=== PATIENT | male | born 1980 | race Caucasian/White ===

== ENCOUNTER 2022-12-17 06:45 | Day surgery (SDC) | payer SELFPAY, OTHER ==
--- NOTE | 2022-12-17 | GASB_PTH ---
PATIENT: SARATH PATTERSON LOC: EN U#:[id number] AGE/SX: 42/M ROOM: RE12/17/[address]: Dr. Endy Fischer DO : 1980 BED: DIS: 12/17/2022 SPEC #: [id number] RECD: 12/17/22 12:54 STATUS: CORIE SALCIDO #: [id number] AMINA: 12/17/22 00:[address]: Endy Fischer DEPT: SURGICAL PATHOLOGY RECD BY: Cristian Garcia ENTERED: 12/17/22 12:55 SP TYPE: Gastric Bx OTHR DR: Dr. Robin Rodriguez MD Tissues: A - Duodenum, NOS B - Gastric mucous membrane C - Esophageal mucous membrane D - Cecum, NOS E - Ileum, NOS F - COLON BIOPSY Procedures: Special Stain Group II Surgery Specimen Level IV Alcian Blue/PAS (control) HEADER OPERATION: Colonoscopy, EGD (MAC), biopsy, hot snare, polypectomy PRE-OP DIAGNOSIS: Borborygmi, excessive gas TISSUE SUBMITTED: A - Duodenum biopsy, B - Gastric antrum biopsy for H. pylori and path, C - Distal esophagus biopsy, D - Ileocecal valve biopsy, E - Terminal ileum biopsy, F - Hepatic flexure polyp MICROSCOPIC DIAGNOSIS A. 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 B. Gastric antrum, biopsy: Mild chronic gastritis. See comment. C. Distal esophagus, biopsy: Chronic inflammation. No evidence of goblet cell metaplasia. D. Ileocecal valve, biopsy: No pathologic change. E. Terminal ileum, biopsy: No pathologic change. F. Colonic polyp at hepatic flexure, biopsy: Tubular adenoma. AM:stacie 12/18/2022 COMMENT B. The results of immunohistochemistry for Helicobacter pylori will be reported separately ([id number]). C. Alcian blue/PAS stain with matched control supports the above diagnosis. F. Neither hyperplastic nor adenomatous change is identified. Clinical correlation is suggested. MICROSCOPIC DESCRIPTION Slides are reviewed. GROSS DESCRIPTION A - Received in fixative is one container labeled with the patient's name and designated duodenum biopsy. The specimen consists of multiple irregular fragments of light weaver soft tissue that in aggregate measure 1.0 x 0.3 x 0.1 cm. The specimen is totally submitted in one cassette. B - Received in fixative is one container labeled with the patient's name and designated gastric antrum. The specimen consists of two irregular fragments of light weaver soft tissue that in aggregate measure 0.5 x 0.5 x 0.1 cm. The specimen is totally submitted in one cassette. C - Received in fixative is one container labeled with the patient's name and designated distal esophagus biopsy. The specimen consists of one irregular fragment of light weaver soft tissue that measures 0.3 x 0.3 x 0.1 cm. The specimen is totally submitted in one cassette. D - Received in fixative is one container labeled with the patient's name and designated ileocecal valve biopsy. The specimen consists of one irregular fragment of light weaver soft tissue that measures 0.3 x 0.3 x 0.1 cm. The specimen is totally submitted in one cassette. E - Received in fixative is one container labeled with the patient's name and designated terminal ileum biopsy. The specimen consists of two irregular fragments of light weaver soft tissue that in aggregate measure 0.5 x 0.5 x 0.1 cm. The specimen is totally submitted in one cassette. F - Received in fixative is one container labeled with the patient's name and designated hepatic flexure polyp. The specimen consists of one irregular fragment of light weaver soft tissue that measures 0.3 x 0.3 x 0.1 cm. The specimen is totally submitted in one cassette. Multiple fragments of fecal material are also noted. / SUSI:stacie 12/17/2022 TC:3 CPT: 90155 x6, 33472
[2022-12-17] MEDS: Lactated Ringers 1,000 ML 15 ML IV (07:16)
[2022-12-17 07:17] VITALS: BP 124/75; PULSE 70; RESP 18; TEMP 36.7; O2SAT 100; BMI 29.5
--- NOTE | 2022-12-17 07:33 | PCM.HP.BLA ---
History and Physical Date of Admission: 12/17/22 42 M who presents to the office today to establish with GI for increased burping and gurgling.? He reports GI changes starting in spring 2021.? Increased burping in morning, as well as some burping in day too, more than usual, increased flatus.? He tried eliminating dairy for 4 weeks but that did not resolve the symptoms.? Also no change in symptoms with dicyclomine or with Beano.? Gurgling sounds can be after eating but they do not have to be.? He denies bloating.? He denies abdominal pain.? He reports a past hx of acid reflux but not having any heartburn or acid reflux currently. No nausea or vomiting. No dysphagia. No early satiety. Normal appetite.? His weight is stable.? He has BM 2x per day, no diarrhea or constipation, no melena or hematochezia. ROS Const Constitutional: No fatigue ENT ENT: No difficulty swallowing Gastro GI: Positive for heartburn and excessive flatus; No abdominal pain, belching, bloating, change in bowel habits, change in stool character, coffee ground emesis, constipation, cramping, diarrhea, difficulty swallowing, feeling full early, incontinent of stools, Vomiting blood/hematemesis, Blood in stool, loose stools, Black,tarry stools, nausea/dyspepsia, pain with swallowing, vomiting or other Musc Musculoskeletal: No joint pain Skin Skin: No yellowing of the eye or itchy eyes Psych Psychiatric: No anxiety and No depression Endo Endocrine: No fatigue Aller/Imm Allergy/Immunologic: No itchy eyes Guille/Lymp Hematologic/Lymphatic: No easy bleeding or easy bruising Exam Const General: cooperative, healthy appearing and comfortable Nutritional Appearance: average body habitus Orientation: alert, awake and oriented x3 HENMT Head: normal to inspection Eyes Sclera: sclerae normal Resp Effort & Inspection: normal respiratory effort GI Inspection: normal to inspection Palpation: soft, no hepatosplenomegaly, no masses and nontender General: bladder normal to palpation Skin General: no rashes or lesions noted Neuro Speech: speech normal Gait: normal gait Quality Reporting Tobacco Screening ([facility] 138) Smoking Status: Never smoker Assessment and Plan Assessment and Plan (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 We will try a course of doxycycline for possible SIBO, we can get an update in a couple of weeks via telephone.? They are possibly interested in endoscopy for further evaluation. (2) Excessive gas: ?Status:?Chronic ?Plan: see above ? ? ? Medications: New doxycycline hyclate 100 mg? PO BID 20 caps 0RF ? ? I have examined the patient and the H&P has been reviewed. There are no clinical changes since date of exam.
--- NOTE | 2022-12-17 08:00 | IMM_PTH ---
PATIENT: SARATH PATTERSON LOC: [facility] U#:[id number] AGE/SX: 42/M ROOM: RE12/17/[address]: Dr. Endy Fischer DO : 1980 BED: DIS: 12/17/2022 SPEC #: [id number] RECD: 12/17/22 13:37 STATUS: CORIE LOLY #: [id number] AMINA: 12/17/22 08:[address]: Endy Fischer DEPT: IMMUNOHISTOCHEMISTRY RECD BY: Anna Shah ENTERED: 12/17/22 13:38 SP TYPE: IMMUNO OTHR DR: Dr. Robin Rodriguez MD Tissues: B - Stomach, NOS Procedures: H Pylori (initial) PHYSICIAN & INSTITUTION [place] [address] SPECIMEN INFORMATION: Tissue Source: B ? Gastric antrum Clinical Info: bee Soler Specimen Number: [id number] CPT code: 51904 METHODOLOGY: Deparaffinized sections of prefer/formalin-fixed tissue or PAP/DQ stained slides are incubated with monoclonal/polyclonal antibodies/oligonucleotide probes. Localization is made via biotin free immunoperoxidase method. Appropriate controls are performed and reacted as expected. Results on target cell population are indicated in the following table: RESULTS: ANTIBODY / CLONE RESULT Block B H Pylori (polyclonal) negative These tests were developed and their performance characteristics determined by [facility]. They may not have been cleared or approved by the U.S. Food and Drug Administration. The FDA has determined that such clearance or approval is not necessary. The above immunohistochemical/dualISH markers are ordered and reviewed by the Pathologist. INTERPRETATION: B. Gastric antrum, biopsy: Negative for Helicobacter pylori organisms. AM:stacie 12/19/2022
[2022-12-17 08:36] VITALS: BP 124/75; BP 126/83; PULSE 61; RESP 16; TEMP 36.2; O2SAT 98
--- NOTE | 2022-12-17 08:37 | OP.EGD_ITS ---
Patient Name: Tino Tucker Procedure Date: 12/17/2022 8:03 AM Date of : 1980 Age: 42 Procedure: Upper GI endoscopy Indications: Functional Dyspepsia, Indigestion Providers: Endy Fischer DO Referring MD: Endy Fischer DO Medicines: Monitored Anesthesia Care Patient Profile: This is a 42 year old male. Refer to note in patient chart for documentation of history and physical. Patient has symptoms of chronic dyspepsia and chronic nausea. Complications: No immediate complications. Procedure: Pre-Anesthesia Assessment: - Prior to the procedure, a History and Physical was performed, and patient medications and allergies were reviewed. The patient is competent. The risks and benefits of the procedure and the sedation options and risks were discussed with the patient. All questions were answered and informed consent was obtained. Patient identification and proposed procedure were verified by the physician in the pre-procedure area. Mental Status Examination: alert and oriented. Airway Examination: normal oropharyngeal airway and neck mobility. Respiratory Examination: clear to auscultation. CV Examination: normal. Prophylactic Antibiotics: The patient does not require prophylactic antibiotics. Prior Anticoagulants: The patient has taken no previous anticoagulant or antiplatelet agents. ASA Grade Assessment: II - A patient with mild systemic disease. After reviewing the risks and benefits, the patient was deemed in satisfactory condition to undergo the procedure. The anesthesia plan was to use moderate sedation / analgesia (conscious sedation). Immediately prior to administration of medications, the patient was re-assessed for adequacy to receive sedatives. The heart rate, respiratory rate, oxygen saturations, blood pressure, adequacy of pulmonary ventilation, and response to care were monitored throughout the procedure. The physical status of the patient was re-assessed after the procedure. After obtaining informed consent, the endoscope was passed under direct vision. Throughout the procedure, the patient's blood pressure, pulse, and oxygen saturations were monitored continuously. The pediatric colonoscope was introduced through the mouth, and advanced to the second part of duodenum. The upper GI endoscopy was accomplished without difficulty. The patient tolerated the procedure well. Scope In: 8:10:37 AM Scope Out: 8:14:34 AM Total Procedure Duration Time 0 hours 3 minutes 57 seconds Findings: Non-severe esophagitis with no bleeding was found 39 to 40 cm from the incisors. Biopsies were taken with a cold forceps for histology. Verification of patient identification for the specimen was done. Estimated blood loss was minimal. A small hiatal hernia was present. No gross lesions were noted in the entire examined stomach. Patchy mildly erythematous mucosa without bleeding was found in the gastric body. Patchy mildly erythematous mucosa without active bleeding and with no stigmata of bleeding was found in the duodenal bulb. Biopsies were taken with a cold forceps for histology. Verification of patient identification for the specimen was done. Estimated blood loss was minimal. Impression: - Non-severe reflux esophagitis. Biopsied. - Small hiatal hernia. - No gross lesions in the stomach. - Erythematous mucosa in the gastric body. - Erythematous duodenopathy. Biopsied. Recommendation: - Discharge patient to home. - Resume previous diet. - Continue present medications. - Await pathology results. Procedure Code(s): --- Professional --- 92417, Esophagogastroduodenoscopy, flexible, transoral; with biopsy, single or multiple CPT copyright 2017 [employer]. All rights reserved. The codes documented in this report are preliminary and upon fleet salesperson review may be revised to meet current compliance requirements. Endy Fischer DO 12/17/2022 8:37:25 AM This report has been signed electronically. Number of Addenda: 0 Note Initiated On: 12/17/2022 8:03 AM
--- NOTE | 2022-12-17 08:37 | OP.CCLET_ITS ---
12/17/2022 Robin Rodriguez Md Re : Upper GI endoscopy procedure for Tino Tucker Dear Jennifer This procedure was performed on Saturday, December 17, 2022. My impressions and recommendations are as follows: Impressions : - Non-severe reflux esophagitis. Biopsied. - Small hiatal hernia. - No gross lesions in the stomach. - Erythematous mucosa in the gastric body. - Erythematous duodenopathy. Biopsied. Recommendations : - Discharge patient to home. - Resume previous diet. - Continue present medications. - Await pathology results. My findings are described in the full procedure note, which is enclosed. If I can be of further assistance, please feel free to contact me at . Sincerely, Endy Fischer, 12/17/2022 8:37:25 AM This report has been signed electronically.
[2022-12-17 08:41] VITALS: BP 107/69; BP 124/75; PULSE 60; RESP 16; O2SAT 98
--- NOTE | 2022-12-17 08:43 | OP.CCLET_ITS ---
12/17/2022 Robin Rodriguez Md Re : Colonoscopy procedure for Tino Tucker Dear Jennifer This procedure was performed on Saturday, December 17, 2022. My impressions and recommendations are as follows: Impressions : - One 5 mm polyp at the hepatic flexure, removed with a hot snare. Resected and retrieved. - Segmental mild inflammation was found at the ileocecal valve secondary to colitis. Biopsied. - Congested mucosa in the terminal ileum. Biopsied. Recommendations : - Discharge patient to home. - Resume previous diet. - Continue present medications. - Await pathology results. - Repeat colonoscopy in 5 years for surveillance. My findings are described in the full procedure note, which is enclosed. If I can be of further assistance, please feel free to contact me at . Sincerely, Endy Fischer, 12/17/2022 8:42:50 AM This report has been signed electronically.
--- NOTE | 2022-12-17 08:43 | OP.COLON_ITS ---
Patient Name: Tino Tucker Procedure Date: 12/17/2022 8:14 AM Date of : 1980 Age: 42 Procedure: Colonoscopy Indications: Epigastric abdominal pain, Generalized abdominal pain, Obstipation Providers: Endy Fischer DO Referring MD: Endy Fischer DO Medicines: Monitored Anesthesia Care Patient Profile: This is a 42 year old male. Refer to note in patient chart for documentation of history and physical. Patient has symptoms of chronic dyspepsia and chronic nausea. Last Colonoscopy: none. The patient's first colonoscopy is today. Complications: No immediate complications. Procedure: Pre-Anesthesia Assessment: - Prior to the procedure, a History and Physical was performed, and patient medications and allergies were reviewed. The patient is competent. The risks and benefits of the procedure and the sedation options and risks were discussed with the patient. All questions were answered and informed consent was obtained. Patient identification and proposed procedure were verified by the physician in the pre-procedure area. Mental Status Examination: alert and oriented. Airway Examination: normal oropharyngeal airway and neck mobility. Respiratory Examination: clear to auscultation. CV Examination: normal. Prophylactic Antibiotics: The patient does not require prophylactic antibiotics. Prior Anticoagulants: The patient has taken no previous anticoagulant or antiplatelet agents. ASA Grade Assessment: II - A patient with mild systemic disease. After reviewing the risks and benefits, the patient was deemed in satisfactory condition to undergo the procedure. The anesthesia plan was to use moderate sedation / analgesia (conscious sedation). Immediately prior to administration of medications, the patient was re-assessed for adequacy to receive sedatives. The heart rate, respiratory rate, oxygen saturations, blood pressure, adequacy of pulmonary ventilation, and response to care were monitored throughout the procedure. The physical status of the patient was re-assessed after the procedure. After I obtained informed consent, the scope was passed under direct vision. Throughout the procedure, the patient's blood pressure, pulse, and oxygen saturations were monitored continuously. The pediatric colonoscope was introduced through the anus and advanced to the terminal ileum. The colonoscopy was performed without difficulty. The patient tolerated the procedure well. The quality of the bowel preparation was adequate. Scope In: 8:17:26 AM Scope Withdrawal Time 0 hours 9 minutes 51 seconds Scope Out: 8:31:28 AM Total Procedure Duration Time 0 hours 14 minutes 2 seconds Findings: The perianal and digital rectal examinations were normal. A 5 mm polyp was found in the hepatic flexure. The polyp was sessile. The polyp was removed with a hot snare. Resection and retrieval were complete. Verification of patient identification for the specimen was done. Estimated blood loss was minimal. Segmental mild inflammation characterized by erosions and erythema was found at the ileocecal valve. Biopsies were taken with a cold forceps for histology. Verification of patient identification for the specimen was done. Estimated blood loss was minimal. A localized area of the terminal ileum was congested. Biopsies were taken with a cold forceps for histology. Verification of patient identification for the specimen was done. Estimated blood loss was minimal. Impression: - One 5 mm polyp at the hepatic flexure, removed with a hot snare. Resected and retrieved. - Segmental mild inflammation was found at the ileocecal valve secondary to colitis. Biopsied. - Congested mucosa in the terminal ileum. Biopsied. Recommendation: - Discharge patient to home. - Resume previous diet. - Continue present medications. - Await pathology results. - Repeat colonoscopy in 5 years for surveillance. Procedure Code(s): --- Professional --- 59141, Colonoscopy, flexible; with removal of tumor(s), polyp(s), or other lesion(s) by snare technique 26893, 59, Colonoscopy, flexible; with biopsy, single or multiple CPT copyright 2017 [employer]. All rights reserved. The codes documented in this report are preliminary and upon physician coder review may be revised to meet current compliance requirements. Endy Fischer DO 12/17/2022 8:42:50 AM This report has been signed electronically. Number of Addenda: 0 Note Initiated On: 12/17/2022 8:14 AM
[2022-12-17 08:46] VITALS: BP 105/70; BP 124/75; PULSE 58; RESP 16; O2SAT 98
[2022-12-17 08:51] VITALS: BP 105/67; BP 124/75; PULSE 56; RESP 16; O2SAT 99
== END 2022-12-17 09:27 | disposition home or self-care (01) ==
LOC: EN 06:50 → AC 06:52
PROVIDERS: PCP Family Medicine; Referring Provider Family Medicine; Visit Provider Internal Medicine Gastroenterology
PROC: 0DJD8ZZ Inspection of Lower Intestinal Tract, Via Natural or Artificial Opening Endoscopic (ICD-10-PCS; CPT 45378; principal; 2022-12-17 07:55)
DX: K52.9 Noninfective gastroenteritis and colitis, unspecified (principal); K21.00 Gastro-esophageal reflux disease with esophagitis, without bleeding; K44.9 Diaphragmatic hernia without obstruction or gangrene; R14.0 Abdominal distension (gaseous); K63.5 Polyp of colon; K29.50 Unspecified chronic gastritis without bleeding
CPT/HCPCS: 43239; 45380; 45385; 88305; 88313; 88342; J7120; J2405